=== PATIENT | female | born 2000 | race Hispanic/Latino ===

== ENCOUNTER 2024-05-17 07:25 | Outpatient (CLI) | payer BC | END 2024-05-17 07:26 | disposition home or self-care (01) | LOC: BICULT 07:25 → ULT 07:26 | PROVIDERS: ATTEND Advanced Practice Midwife | DX: Z34.90 Encounter for supervision of normal pregnancy, unspecified, unspecified trimester (principal) | CPT/HCPCS: 76805 ==